=== PATIENT | female | born 1990 | race Caucasian/White ===

== ENCOUNTER 2017-08-07 10:48 | Day surgery (SDC) | payer BC, OTHER ==
[2017-08-03 11:11] LABS: HEMATOCRIT 38.3 % (36.0-47.0); MEAN CORPUSCULAR HEMOGLOBIN 26.6 pg (27.0-33.4); MEAN CORPUSCULAR HGB CONC 33.9 g/dL (32.0-36.0); MEAN CORPUSCULAR VOLUME 79 fl (80-97); PLATELET COUNT 271 10^3/uL (150-450); RED BLOOD COUNT 4.88 10^6/uL (3.72-5.28); RED CELL DISTRIBUTION WIDTH 17.2 % (11.5-14.0); WHITE BLOOD COUNT 5.9 10^3/uL (4.0-10.5)
[~2017-08-07 10:48] MED LIST: CEFAZOLIN 2 GM/D5W RTU 2 GM/50 ML RTUPB IV PRN; LACTATED RINGERS 1000 ML IV PRN; LIDOCAINE 0.5% INJ-PF (5 MG/ML) 50 ML SDV SUBCUT PRN; LIDOCAINE 2% INJ-PF (20 MG/ML) 2 ML AMPUL ONE
[2017-08-07] MEDS ORDERED: BUPIVACAINE HCL 0.25 % INJ/PF (2.5 MG/1 ML) 30 ML VIAL ONE (14:02)
[2017-08-07] MEDS ORDERED: LIDOCAINE 1% INJ-PF (10 MG/ML) 30 ML SDV ONE (14:02)
--- NOTE | 2017-08-07 14:41 | RADIOLOGY REPORT (SQ) ---
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 RADIONUCLIDE AND DOSE: 548 microcuries TC-99m tilmanocept - [employer]. The route of agent administration: Subcutaneous in the skin. TECHNIQUE: The skin of the right upper arm was prepped in sterile fashion. The radiopharmaceutical was administered in equally divided doses in the skin around the melanoma excisional site LIMITATIONS: None. FINDINGS: Images demonstrate activity at the injection site. Migration toward the right axillary ly mph node was identified. IMPRESSION: ADMINISTRATION OF RADIOPHARMACEUTICAL FOR MELANOMA SENTINEL LYMPH NODE EVALUATION. TECHNICAL DOCUMENTATION: JOB ID: [id number] [employer]- All Rights Reserved Reading location - IP/workstation name: [email or web address]
[2017-08-07] MEDS ORDERED: METHYLENE BLUE 50 MG/10 ML AMPULE ONE (15:15)
[2017-08-07] MEDS ORDERED: FENTANYL CITRATE INJ/PF 100 MCG/2 ML AMPUL ONE ×2 (15:19→15:57)
[2017-08-07] MEDS ORDERED: MIDAZOLAM 2 MG/2 ML INJ ONE ×2 (15:19→15:57)
[2017-08-07] MEDS ORDERED: PROPOFOL INJ 200 MG/20 ML VIAL IV ONE ×2 (15:20→15:58)
[2017-08-07] MEDS ORDERED: ONDANSETRON HCL INJ/PF 4 MG/2 ML SDV IV PRN (16:09)
[2017-08-07] MEDS ORDERED: FENTANYL CITRATE INJ/PF 100 MCG/2 ML AMPUL IV PRN ×3 (16:09)
[2017-08-07] MEDS ORDERED: MEPERIDINE HCL/PF INJ 25 MG/1 ML DISP.SYRIN IV PRN (16:09)
[2017-08-07] MEDS ORDERED: PROMETHAZINE HCL INJ 25 MG/1 ML VIAL IV PRN (16:09)
[2017-08-07] MEDS ORDERED: DIPHENHYDRAMINE HCL 50 MG/ML VIAL IV PRN (16:09)
[2017-08-07] MEDS ORDERED: MORPHINE SULFATE 10 MG/ML INJ ONE (16:21)
[2017-08-07] MEDS ORDERED: PROMETHAZINE HCL INJ 25 MG/1 ML VIAL ONE (18:10)
[2017-08-07] MEDS ORDERED: HYDROCODONE/ACETAMINOPHEN 10-325 MG TABLET ONE ×2 (18:58→19:23)
[2017-08-07] MEDS ORDERED: ONDANSETRON 4 MG TAB.RAPDIS ONE (18:59)
--- NOTE | 2017-08-07 20:05 | Discharge Summary ---
Discharge Summary (SDC) - Discharge Final Diagnosis: right arm melanoma Date of Surgery: 08/07/17 Discharge Date: 08/07/17 Forms: ASU Anesthesia D/C Instruction, Discharge POC-Surgical Service Treatment or Instructions: CALL TO SCHEDULE FOLLOW UP IN 7-10 DAYS OK TO REMOVE DRESSING AND SHOWER IN 48 HOURS (THURSDAY), LEAVE THE STERI STRIPS ON UNTIL THEY FALL OFF ON THEIR OWN; WASH INCISIONS WITH SOAP AND WATER, PAT DRY NO TUB BATHS OR SWIMMING FOR 2 WEEKS CALL CLINIC WITH ANY QUESTIONS OR CONCERNS; IF AFTER OFFICE HOURS CALL THE [facility] NUMBER Referrals: THELMA TEJEDA MD [ACTIVE STAFF] - Respiratory Treatments at Home: Deep Breathing/Coughing Discharge Activity: Slowly Increase Activity Home Care Assistance: None Needed Report the Following to Your Physician Immediately: Shortness of Breath, Nausea , Vomiting, Increase in Pain, Fever over 101 Degrees, Unusual Bleeding, Redness , Swelling, Warmth, Drainage-Foul Smelling
[2017-08-07 20:24] VITALS: BP 132/81
--- NOTE | 2017-08-07 20:30 | Operative Report ---
Nonrecallable Operative Report DATE OF SURGERY: 08/07/17 PREOPERATIVE DIAGNOSIS: right arm melanoma POSTOPERATIVE DIAGNOSIS: right arm melanoma OPERATION: 1. Wide local excision of right arm melanoma (6 cm x 18 cm). 2. [place]st lymph node biopsy right axilla. 3. Intermediate closure of 18 cm right upper extremity incision SURGEON: THELMA TEJEDA ANESTHESIA: GA TISSUE REMOVED OR ALTERED: 1. Hazel Hurst lymph node biopsy right axilla. 2. Wide local excision of the right upper extremity (6 cm diameter excised, 2 cm lesion with 2 cm circumferential margin) COMPLICATIONS: None apparent ESTIMATED BLOOD LOSS: Minimal PROCEDURE: Drains/implants: None. Procedure in detail: After informed consent was obtained, the patient was laid in the supine position in the operating room. The right upper extremity and axilla were prepped and draped in normal sterile fashion. Methylene blue had previously been injected around the melanoma site prior to prepping. Next, the gamma probe was used to identify the hot spot in the right axilla. Incision was created in the axilla (approximately 4 cm) in the area of the hot spot. Dissection was carried down through the axilla using blunt dissection and sharp dissection. The sentinel lymph node was identified with both the gamma probe and by methylene blue staining. A small cluster of lymph nodes were removed using blunt dissection, hemoclips, and sharp dissection. Once removed, an ex vivo count was performed (11,[id number]). Next a background count was performed (171) . The background was less than 10% of the total count, confirming the sentinel lymph node was removed. Once the lymph node was removed, hemostasis was achieved. The subcutaneous tissue was closed using 3-0 Vicryl suture. The overlying skin was closed using 4-0 Vicryl Rapide suture in subcuticular fashion. A dressing was fashioned, and attention was turned to wide local excision of the melanoma. Next, the right upper extremity melanoma was marked. The lesion itself measured 2 cm in diameter. 2 additional centimeters of margin were marked circumferentially. Next, an 18 cm long incision would be required for primary closure. An ellipse was created with a 15 blade scalpel (18 x 6 cm). The melanoma was removed down to the fascia of the arm. The specimen was marked, long stitch lateral and short stitch superior. Local advancement flaps were raised. The subcutaneous tissue was closed using 3-0 Vicryl suture in simple interrupted fashion. The skin was closed using 0 nylon suture in simple interrupted fashion. A dressing was placed and the procedure was concluded. All sponge, instrument, and needle counts were correct 2. Condition: Stable.
== END 2017-08-07 20:25 | disposition home or self-care (01) ==
LOC: OROUT 10:48
PROVIDERS: ATTEND Surgery
DX: C43.61 Malignant melanoma of right upper limb, including shoulder (principal); C43.9 Malignant melanoma of skin, unspecified; D50.9 Iron deficiency anemia, unspecified; R01.1 Cardiac murmur, unspecified; E03.9 Hypothyroidism, unspecified; Q96.9 Turner's syndrome, unspecified; Z79.899 Other long term (current) drug therapy
CPT/HCPCS: 36415; 85027; 88305 ×2; 88307 ×2; 78195; 24075; 38500; A9520; J2250; S0119; J3010; J3490 ×2; J2270; J2550; J2704; J0690; Q9968; 1610